=== PATIENT | male | born 1960 | race Caucasian/White ===

== ENCOUNTER → 2019-03-05 | Outpatient (CLI) | payer MEDICAID ==
--- NOTE | 2019-03-05 16:20 | RADIOLOGY REPORT (SQ) ---
EXAM DESCRIPTION: FOOT RIGHT COMPLETE COMPLETED DATE/TIME: 03/05/2019 4:08 pm REASON FOR STUDY: PAIN IN RIGHT FOOT M79.671 PAIN IN RIGHT FOOT COMPARISON: None. NUMBER OF VIEWS: Three views. TECHNIQUE: AP, lateral and oblique without weight bearing radiographic images acquired of the right foot. LIMITATIONS: None. FINDINGS: MINERALIZATION: Normal. BONES: No acute fracture or dislocation. There is bony fusion of the talus and calcaneus. No worris ome bone lesions. No significant osteophytes. JOINTS: No erosions. No merary-articular osteopenia. No chondrocalcinosis. SOFT TISSUES: Extensive calcifications in the posterior soft tissues of the distal calf, not complete ly imaged. OTHER: No other significant finding. IMPRESSION: BONY FUSION OF THE TALUS AND CALCANEUS WHICH OBLITERATES THE SUBTALAR JOINT. EXTENSIVE CALCIFICATIONS IN THE POSTERIOR SOFT TISSUES OF THE DISTAL CALF, NOT COMPLETELY IMAGED. NO ACUTE FIN DINGS. TECHNICAL DOCUMENTATION: JOB ID: [id number] [employer]- All Rights Reserved Reading location - IP/workstation name: [email or web address]
== END ==
LOC: OD 15:54
PROVIDERS: ATTEND Family Medicine
DX: M79.671 Pain in right foot (principal)

== ENCOUNTER → 2019-08-14 | Outpatient (CLI) | payer MEDICAID ==
--- NOTE | 2019-08-14 17:07 | RADIOLOGY REPORT (SQ) ---
EXAM DESCRIPTION: C SP 4 OR 5 VIEWS COMPLETED DATE/TIME: 08/14/2019 4:11 pm REASON FOR STUDY: NECK PAIN ACUTE M54.2 CERVICALGIA COMPARISON: None. NUMBER OF VIEWS: Five views. TECHNIQUE: AP, lateral, obliques and odontoid radiographic images acquired of the cervical spine. LIMITATIONS: None. FINDINGS: MINERALIZATION: Normal. ALIGNMENT: Anatomic. VERTEBRAE: Intact. 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 DISCS: Disc space narrowing with osteophytes, most pronounced at at C5-C6 and C7-T1. FORAMINA: Foraminal narrowing due to posterior osteophytes in the lower cervical spine, most pronounc ed at C5-C6. LATERAL AND POSTERIOR ELEMENTS: Facets, lateral masses and spinous processes without significant find ings. HARDWARE: None in the spine. SOFT TISSUES: No masses or calcifications. Lung apices clear. OTHER: No other significant finding. 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 DEGENERATIVE DISC DISEASE DESCR IBED. TECHNICAL DOCUMENTATION: JOB ID: [id number] [employer]- All Rights Reserved Reading location - IP/workstation name: [email or web address]
== END ==
LOC: OD 15:58
PROVIDERS: ATTEND Nurse Practitioner Family
DX: M54.2 Cervicalgia (principal)
CPT/HCPCS: 72050

== ENCOUNTER → 2019-08-23 | Outpatient (CLI) | payer MEDICAID ==
--- NOTE | 2019-08-23 13:08 | RADIOLOGY REPORT (SQ) ---
EXAM DESCRIPTION: SHOULDER LEFT 2 OR MORE VIEWS COMPLETED DATE/TIME: 08/23/2019 12:58 pm REASON FOR STUDY: LEFT ANTERIOR SHOULDER PAIN;LUMBAR RADICULOPATHY M25.512 PAIN IN LEFT SHOULDER M5 4.16 RADICULOPATHY, LUMBAR REGION COMPARISON: None. NUMBER OF VIEWS: Three views. TECHNIQUE: Internal rotation, external rotation, and Y view images acquired of the left shoulder. LIMITATIONS: None. FINDINGS: MINERALIZATION: Normal. BONES: No acute fracture. No worrisome bone lesions. JOINTS: No dislocation. VISUALIZED LUNGS AND RIBS: No pneumothorax. No rib fracture. SOFT TISSUES: No radiopaque foreign body. OTHER: No other significant finding. IMPRESSION: NEGATIVE STUDY OF THE LEFT SHOULDER. NO RADIOGRAPHIC EVIDENCE OF ACUTE INJURY. TECHNICAL DOCUMENTATION: JOB ID: [id number] [employer]- All Rights Reserved Reading location - IP/workstation name: [email or web address]
--- NOTE | 2019-08-23 13:10 | RADIOLOGY REPORT (SQ) ---
EXAM DESCRIPTION: LUMBAR SPINE COMPLETE COMPLETED DATE/TIME: 08/23/2019 12:59 pm REASON FOR STUDY: LEFT ANTERIOR SHOULDER PAIN;LUMBAR RADICULOPATHY M25.512 PAIN IN LEFT SHOULDER M5 4.16 RADICULOPATHY, LUMBAR REGION COMPARISON: 06/14/2016 NUMBER OF VIEWS: Five views including obliques. TECHNIQUE: AP, lateral, oblique, and sacral radiographic images acquired of the lumbar spine. LIMITATIONS: None. FINDINGS: MINERALIZATION: Normal. SEGMENTATION: Normal. No transitional anatomy. ALIGNMENT: Normal. VERTEBRAE: Maintained height. No fracture or worrisome bone lesion. DISCS: Preserved height. No significant osteophytes or end plate irregularity. POSTERIOR ELEMENTS: Pedicles and facets are intact. No pars defect or posterior arch defects. Minim al lower lumbar facet arthropathy. HARDWARE: None in the spine. PARASPINAL SOFT TISSUES: Aortic atherosclerosis. PELVIS: Intact as visualized. No fractures or worrisome bone lesions. SI joints intact. OTHER: No other significant finding. IMPRESSION: No evidence of acute bony abnormality. Minimal lower lumbar facet arthropathy. No significant degenerative disc disease. TECHNICAL DOCUMENTATION: JOB ID: [id number] [employer]- All Rights Reserved Reading location - IP/workstation name: [email or web address]
== END ==
LOC: OD 12:31
PROVIDERS: ATTEND Family Medicine
DX: M25.512 Pain in left shoulder (principal); M54.16 Radiculopathy, lumbar region
CPT/HCPCS: 72110

== ENCOUNTER 2020-09-28 10:04 | Day surgery (SDC) | payer MEDICAID ==
[~2020-09-28 10:04] MED LIST: ACETAMINOPHEN 325 MG TABLET PO PRN; CEFAZOLIN 2 GM/D5W RTU 2 GM/50 ML RTUPB IV PRN; DEXAMETHASONE SOD PHOSPHATE INJ 4 MG/1 ML VIAL ONE; FENTANYL CITRATE INJ/PF 100 MCG/2 ML AMPUL ONE; MIDAZOLAM 2 MG/2 ML INJ ONE; ONDANSETRON HCL INJ/PF 4 MG/2 ML SDV ONE; PROPOFOL INJ 200 MG/20 ML VIAL IV ONE; SUGAMMADEX SODIUM 200 MG/2 ML SDV IV ONE
[2020-09-28] MEDS ORDERED: CEFAZOLIN 2 GM/D5W RTU 2 GM/50 ML RTUPB IV ONE (10:10)
[2020-09-28] MEDS ORDERED: BUPIVACAINE INJ/PF LIPOSOME/PF 266 MG/20 ML SDV ONE (10:34)
[2020-09-28 11:03] LABS: HEMATOCRIT 47.8 % (37.9-51.0); HEMOGLOBIN 16.3 g/dL (13.5-17.0); MEAN CORPUSCULAR HEMOGLOBIN 30.3 pg (27.0-33.4); MEAN CORPUSCULAR VOLUME 89 fl (80-97); PLATELET COUNT 205 10^3/uL (150-450); RED BLOOD COUNT 5.37 10^6/uL (4.35-5.55); RED CELL DISTRIBUTION WIDTH 13.4 % (11.5-14.0); WHITE BLOOD COUNT 7.3 10^3/uL (4.0-10.5)
--- NOTE | 2020-09-28 12:07 | Operative Report ---
Nonrecallable Operative Report DATE OF SURGERY: 09/28/20 PREOPERATIVE DIAGNOSIS: left inguinal hernia recurrent. POSTOPERATIVE DIAGNOSIS: Recurrent left inguinal hernia OPERATION: Laparoscopic repair recurrent left inguinal hernia SURGEON: MICHELLE LAZO [employer] ENGINEER: RYLIE NOBLE ANESTHESIA: GA TISSUE REMOVED OR ALTERED: None COMPLICATIONS: None ESTIMATED BLOOD LOSS: 5 cc INTRAOPERATIVE FINDINGS: See note PROCEDURE: Patient was brought to the operating room awake alert in stable condition placed on the operating table supine position induced under general esthesia intubated The abdomen was prepped draped usual sterile fashion for the procedure. After appropriate timeout and site verification the procedure commenced. A curvilinear linear incision was made infraumbilically dissection was carried down through subcutaneous tissue with Bovie cautery to the fascia of the rectus sheath. The anterior sheath was opened transversely with a 15 blade and the muscle was identified and retracted laterally the posterior sheath was identified. A space was made between the posterior sheath and the rectus muscle and the spacemaker balloon was placed into that incision into the space. Spacemaker balloon was inflated under direct vision. This created a space in the retroperitoneum for us to perform the surgery. Two 5 mm ports were placed in the midline under direct vision. Attention was turned to the left side the areolar tissue along the transversalis muscle was dissected back down to identify the transversalis muscle clearly. We continued our dissection inferiorly to identify the cord structures and the internal ring. There was sac that was incarcerated in the internal ring which was mobilized out with blunt and sharp dissection. Once we reduced the sac identify the vas deferens and the spermatic vessels. We then identified the Jagdish's ligament being careful not to injure the iliac vein. Once this was all identified we cleared off the areolar tissue on top of the rectus muscle. And then utilized a piece of polypropylene mesh measuring 3 cm wide by 6 cm long with a slit down the side placed into the retroperitoneum fixed it posteriorly to the Jagdish's ligament anterior to the rectus muscle lateral to the transversalis muscle being careful not to injure the lateral femoral cutaneous nerve. We wrapped the cord and carefully tacked down the mesh to the transversalis muscle. Once this was accomplished we reduce the pneumoperitoneum we closed the rectus sheath incision with 0 Vicryl and closed all 3 skin incisions with intracuticular 4-0 Biosyn Steri-Strips completed the procedure estimated blood loss was less than 10 cc sponge needle counts correct x2 the patient was awakened in the operating extubated transferred recovery in stable condition no complications. CONSUELO Gardiner was present for the entire procedure help with wound retraction dissection and wound closure.
--- NOTE | 2020-09-28 12:12 | Discharge Summary ---
Discharge Summary (SDC) - Discharge Final Diagnosis: Left inguinal hernia recurrent Date of Surgery: 09/28/20 Discharge Date: 09/28/20 Condition: Good Prescriptions: Oxycodone HCl/Acetaminophen [Percocet 10-325 Mg Tablet] 1 each PO Q6HP PRN #15 tablet PRN Reason: Referrals: TAPAN PINA DO [Primary Care Provider] - Discharge Diet: As Tolerated Discharge Activity: Activity As Tolerated, No Lifting Over 10 Pounds Report the Following to Your Physician Immediately: Increase in Pain, Yellow Skin, Drainage-Yellow - pt needs a f/u appoint [facility] in -, Drainage-Rehman, Drainage-Green
[2020-09-28] MEDS ORDERED: OXYCODONE-ACETAMINOPHEN 5-325 MG TABLET ONE (12:48)
[2020-09-28] MEDS ORDERED: OXYCODONE HCL IR 5 MG TABLET ONE (12:49)
[2020-09-28] MEDS ORDERED: OXYCODONE-ACETAMINOPHEN 5-325 MG TABLET PO ONE (13:00)
[2020-09-28] MEDS ORDERED: OXYCODONE HCL IR 5 MG TABLET PO ONE (13:00)
[2020-09-28 13:55] VITALS: BP 133/87
[2020-09-28] MEDS ORDERED: GLYCOPYRROLATE 1 MG/5 ML VIAL ONE (14:23)
[2020-09-28] MEDS ORDERED: SUCCINYLCHOLINE CHLORIDE INJ 200 MG/10 ML VIAL ONE (14:23)
[2020-09-28] MEDS ORDERED: VECURONIUM BROMIDE INJ 10 MG VIAL IV ONE (14:23)
[2020-09-28] MEDS ORDERED: NEOSTIGMINE METHYLSULFATE 10 MG/10 ML VIAL ONE (14:23)
== END 2020-09-28 14:00 | disposition home or self-care (01) ==
LOC: OROUT 10:04
PROVIDERS: ATTEND Surgery
DX: K40.91 Unilateral inguinal hernia, without obstruction or gangrene, recurrent (principal); G80.8 Other cerebral palsy; I10 Essential (primary) hypertension; Z03.818 Encounter for observation for suspected exposure to other biological agents ruled out; M48.061 Spinal stenosis, lumbar region without neurogenic claudication; Z87.891 Personal history of nicotine dependence; Z86.73 Personal history of transient ischemic attack (TIA), and cerebral infarction without residual deficits; Z79.899 Other long term (current) drug therapy
CPT/HCPCS: 36415; 85027; 87635; 00840; 49651; J2250; J1100; J3010; J3490 ×3; J2710; J0330; J2405; J2704; J0690; C9290; C9803; 840; C1713; C1758; C1781

== ENCOUNTER → 2020-11-23 | Outpatient (CLI) | payer MEDICAID ==
--- NOTE | 2020-11-23 12:40 | RADIOLOGY REPORT (SQ) ---
EXAM DESCRIPTION: SHOULDER RIGHT 2 OR MORE VIEWS IMAGES COMPLETED DATE/TIME: 11/23/2020 12:22 pm REASON FOR STUDY: (M25.511)PAIN IN RIGHT SHOULDER M25.511 PAIN IN RIGHT SHOULDER COMPARISON: None. NUMBER OF VIEWS: Three views. TECHNIQUE: Internal rotation, external rotation, and Y view images acquired of the right shoulder. LIMITATIONS: None. FINDINGS: MINERALIZATION: Normal. BONES: No acute fracture. No worrisome bone lesions. No significant osteophytes. GLENOHUMERAL JOINT: No significant findings. ACROMIOCLAVICULAR JOINT: No large osteophytes. SOFT TISSUES: No calcifications. VISUALIZED RIBS, SPINE, AND LUNG: No other significant finding. OTHER: No other significant finding. IMPRESSION: NEGATIVE STUDY OF THE RIGHT SHOULDER. NO EXPLANATION FOR PAIN. TECHNICAL DOCUMENTATION: JOB ID: [id number] 2010 [employer]- All Rights Reserved Reading location - IP/workstation name: [email or web address]
== END ==
LOC: RAD 12:09
PROVIDERS: ATTEND Family Medicine
DX: M25.511 Pain in right shoulder (principal)

== ENCOUNTER 2020-12-01 14:21 | Observation (INO) | payer MEDICAID ==
[~2020-12-01 14:21] MED LIST changes: -ACETAMINOPHEN 325 MG TABLET PO PRN; -CEFAZOLIN 2 GM/D5W RTU 2 GM/50 ML RTUPB IV PRN; -DEXAMETHASONE SOD PHOSPHATE INJ 4 MG/1 ML VIAL ONE; -FENTANYL CITRATE INJ/PF 100 MCG/2 ML AMPUL ONE; -MIDAZOLAM 2 MG/2 ML INJ ONE; -ONDANSETRON HCL INJ/PF 4 MG/2 ML SDV ONE; -PROPOFOL INJ 200 MG/20 ML VIAL IV ONE; +ROCURONIUM BROMIDE INJ 50 MG/5 ML VIAL IV ONE; +SUCCINYLCHOLINE CHLORIDE INJ 200 MG/10 ML VIAL ONE; -SUGAMMADEX SODIUM 200 MG/2 ML SDV IV ONE
[2020-12-01] MEDS ORDERED: ONDANSETRON HCL INJ/PF 4 MG/2 ML SDV IV ONE (14:45)
[2020-12-01] MEDS ORDERED: MORPHINE SULFATE 10 MG/ML INJ IV ONE (14:45)
[2020-12-01] MEDS ORDERED: NORMAL SALINE 1000 ML 1,000 ML IV ONE ×2 (14:45→16:14)
--- NOTE | 2020-12-01 14:51 | ER Document Report ---
ED Medical Screen (RME) - General Chief Complaint: Lower Abdominal Pain Stated Complaint: LOW ABDOMINAL PAIN Time Seen by Provider: 12/01/20 14:45 Primary Care Provider: TAPAN PINA DO [Primary Care Provider] - Follow up as needed TRAVEL OUTSIDE OF THE [place] IN LAST 30 DAYS: No - HPI Notes: 12/01/20 14:55 60 year old male with presents to the emergency room after he was at an outpatient scan for his right inguinal hernia which they did see that he actually has appendicitis. Patient states that he is not having any nausea, vomiting, abdominal pain. He states he might have some when he wears his seatbelts otherwise no pain. Denies any fevers or chills. Patient has not had anything to eat or drink since [address] Clifton Christian has already been notified that patient does have appendicitis. Will obtain labs and patient will be placed on room in the main side ER I have greeted and performed a rapid initial assessment of this patient. A c omprehensive ED assessment and evaluation of the patient, analysis of test results and completion of the medical decision making process will be conducted by additional ED providers. PHYSICAL EXAMINATION: GENERAL: Well-appearing, well-nourished and in no acute distress. CV: s1, s2 regular LUNGS: No respiratory distress abd: RLQ tenderness with deep palpation, no cva tenderness bilaterally Musculoskeletal: Normal range of motion NEUROLOGICAL: Normal speech, normal gait. SKIN: Warm, Dry, normal turgor, no rashes or lesions noted. The patient was evaluated during a global COVID-19 pandemic and that diagnosis was suspected/considered upon their initial presentation. Their evaluation, treatment and testing was consistent with current guidelines for patients who present with complaints or symptoms and may be related to COVID-19. - Related Data Allergies/Adverse Reactions: No Known Allergies Allergy (Verified 03/02/16 09:48) Past Medical History - Past Medical History Cardiac Medical History: Reports: Hx Hypertension Denies: Hx Coronary Artery Disease, Hx Heart Attack Pulmonary Medical History: Denies: Hx Asthma, Hx Bronchitis, Hx COPD, Hx Pneumonia Neurological Medical History: Reports: Hx Cerebrovascular Accident - INFANT R/O CEREBRAL PALSY. Denies: Hx Seizures Musculoskeltal Medical History: Reports Hx Arthritis - Immunizations Hx Diphtheria, Pertussis, Tetanus Vaccination: Yes Physical Exam - Vital signs Vitals: Temp Pulse Resp BP Pulse Ox 98.3 F 56 L 18 138/83 H 98 12/01/20 14:26 12/01/20 14:26 12/01/20 14:26 12/01/20 14:26 12/01/20 14:26 Course - Vital Signs Vital signs: Temp Pulse Resp BP Pulse Ox 98.3 F 56 L 18 138/83 H 98 12/01/20 14:26 12/01/20 14:26 12/01/20 14:26 12/01/20 14:26 12/01/20 14:26 Doctor's Discharge - Discharge Referrals: TAPAN PINA DO [Primary Care Provider] - Follow up as needed
[2020-12-01 15:15] LABS: APPEARANCE,URINE CLEAR; BILIRUBIN,URINE NEGATIVE (NEGATIVE); COLOR,URINE STRAW; GLUCOSE, URINE NEGATIVE (NEGATIVE); KETONES,URINE NEGATIVE (NEGATIVE); LEUKOCYTE ESTERASE,URINE NEGATIVE (NEGATIVE); NITRITE,URINE NEGATIVE (NEGATIVE); PROTEIN,URINE NEGATIVE (NEGATIVE); URINE SPECIFIC GRAVITY 1.038; UROBILINOGEN,URINE NEGATIVE mg/dL (<2.0)
[2020-12-01 15:49] LABS: ABSOLUTE BASOPHILS # (AUTO) 0.1 10^3/uL (0.0-0.2); ABSOLUTE EOSINOPHILS # (AUTO) 0.5 10^3/uL (0.0-0.6); ABSOLUTE LYMPHOCYTES (AUTO) 1.9 10^3/uL (0.5-4.7); ABSOLUTE MONOCYTES (AUTO) 0.7 10^3/uL (0.1-1.4); ABSOLUTE NEUT (AUTO) 3.6 10^3/uL (1.7-8.2); BASOPHILS % (AUTO) 1.1 % (0-2); EOSINOPHILS % (AUTO) 6.6 % (0-6); HEMATOCRIT 45.8 % (37.9-51.0); HEMOGLOBIN 15.5 g/dL (13.5-17.0); LYMPHOCYTES % (AUTO) 27.9 % (13-45); MEAN CORPUSCULAR HEMOGLOBIN 29.5 pg (27.0-33.4); MEAN CORPUSCULAR HGB CONC 33.9 g/dL (32.0-36.0); MEAN CORPUSCULAR VOLUME 87 fl (80-97); MONOCYTES % (AUTO) 10.9 % (3-13); PLATELET COUNT 177 10^3/uL (150-450); RED BLOOD COUNT 5.25 10^6/uL (4.35-5.55); SEGMENTED NEUTROPHILS % (AUTO) 53.5 % (42-78); TOTAL CELLS COUNTED % (AUTO) 100 %; WHITE BLOOD COUNT 6.8 10^3/uL (4.0-10.5)
[2020-12-01 16:10] LABS: ALKALINE PHOSPHATASE 101 U/L (38-126); ANION GAP 6 (5-19); ASPARTATE AMINO TRANSFERASE 25 U/L (17-59); BILIRUBIN,DIRECT 0.1 mg/dL (0.0-0.4); BILIRUBIN,TOTAL 0.3 mg/dL (0.2-1.3); BLOOD UREA NITROGEN 22 mg/dL (7-20); CALCIUM 9.6 mg/dL (8.4-10.2); CARBON DIOXIDE 30 mmol/L (22-30); CHLORIDE 96 mmol/L (98-107); GLUCOSE 100 mg/dL (75-110); POTASSIUM 4.1 mmol/L (3.6-5.0); TOTAL PROTEIN 6.7 g/dL (6.3-8.2)
[2020-12-01] MEDS ORDERED: CEFOXITIN INJ 2 GM VIAL IV ONE (16:14)
[2020-12-01] MEDS ORDERED: NORMAL SALINE 1000 ML 1,000 ML IV PRN ×2 (16:16→20:02)
--- NOTE | 2020-12-01 16:34 | PDOC H&P ---
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 CT scan abdomen pelvis revealed the presence or inflamed appendix within the right groin hernia sac. The patient denies nausea vomiting or other systemic symptoms. He reports her had a right inguinal hernia repaired in 1985. He also had an open left inguinal hernia repair done twice in the and in 2019 Past Medical History Cardiac Medical History: Reports: Hypertension Denies: Coronary Artery Disease, Myocardial Infarction Pulmonary Medical History: Denies: Asthma, Bronchitis, Chronic Obstructive Pulmonary Disease (COPD), Pneumonia Neurological Medical History: Denies: Seizures Musculoskeltal Medical History: Reports: Arthritis Hematology: Denies: Anemia Social History Smoking Status: Never Smoker Family History Parental Family History Reviewed: No Children Family History Reviewed: No Sibling(s) Family History Reviewed.: No Medication/Allergy Home Medications: Hydrochlorothiazide 25 mg PO DAILY 03/01/16 Lisinopril 20 mg PO DAILY 09/28/20 Oxycodone HCl/Acetaminophen [Percocet 10-325 Mg Tablet] 1 each PO Q6HP PRN #15 tablet 09/28/20 Allergies/Adverse Reactions: No Known Allergies Allergy (Verified 03/02/16 09:48) Physical Exam Vital Signs: Temp Pulse Resp BP Pulse Ox 98.3 F 56 L 18 138/83 H 98 12/01/20 14:26 12/01/20 14:26 12/01/20 14:26 12/01/20 14:26 12/01/20 14:26 Intake & Output 11/30/20 12/01/20 12/02/20 06:59 06:59 06:59 Weight 82.4 kg General appearance: PRESENT: no acute distress, thin, well-developed, other - Right upper and lower extremities spasticity Head exam: PRESENT: atraumatic, normocephalic Eye exam: PRESENT: EOMI Mouth exam: PRESENT: moist Teeth exam: PRESENT: edentulous Neck exam: PRESENT: full ROM Respiratory exam: PRESENT: clear to auscultation matilda Cardiovascular exam: PRESENT: RRR GI/Abdominal exam: PRESENT: soft, other - To distended, not tender; presence of tender right groin bulge with grimacing on palpation, normal scrotum with bilateral descended testicles Rectal exam: PRESENT: deferred Gentrourinary exam: PRESENT: other - Normal scrotum with bilateral descended testicles, right groin bulge tender on palpation Extremities exam: PRESENT: full ROM Musculoskeletal exam: PRESENT: full ROM Neurological exam: PRESENT: alert, awake, oriented to time, CN II-XII grossly intact Psychiatric exam: PRESENT: appropriate affect Skin exam: PRESENT: warm Results Laboratory Results: 12/01/20 15:22 12/01/20 15:22 12/01/20 12/01/20 12/01/20 14:45 15:22 15:22 WBC 6.8 RBC 5.25 Hgb 15.5 Hct 45.8 MCV 87 MCH 29.5 MCHC 33.9 RDW 13.0 Plt Count 177 Seg Neutrophils % 53.5 Sodium 132.0 L Potassium 4.1 Chloride 96 L Carbon Dioxide 30 Anion Gap 6 BUN 22 H Creatinine 0.86 Est GFR ( Amer) > 60 Glucose 100 Calcium 9.6 Total Bilirubin 0.3 AST 25 Alkaline Phosphatase 101 Total Protein 6.7 Albumin 4.0 Lipase 46.5 Urine Color STRAW Urine Appearance CLEAR Urine pH 6.0 Ur Specific [place] 1.038 Urine Protein NEGATIVE Urine Glucose (UA) NEGATIVE Urine Ketones NEGATIVE Urine Blood NEGATIVE Urine Nitrite NEGATIVE Ur Leukocyte Esterase NEGATIVE Urine WBC (Auto) 1 Urine RBC (Auto) 0 Assessment & Plan - Time Anticipated Discharge Disposition: Home, Self Care Anticipated Discharge Timeframe: within 72 hours - Plan Summary Plan Summary: Assessment: 60-year-old male with spasticity of the right upper and lower extremities History of multiple right and left inguinal hernia repairs CT scan A/P with Right inguinal hernia containing an inflamed appendix as per acute appendicitis Blood work within normal limits Covid test negative Plan: Laparoscopic appendectomy possible open, followed by open right inguinal hernia repair with mesh either synthetic or absorbable Procedure, risks, benefits, complications, alternatives, explained to the patient, he understands all the above, his questions answered, he decides to proceed Mefoxin 2 g IV piggyback Normal saline 1 L bolus preop
[2020-12-01] MEDS ORDERED: FENTANYL CITRATE INJ/PF 250 MCG/5 ML AMPULE ONE (16:39)
[2020-12-01] MEDS ORDERED: HYDROMORPHONE HCL INJ/PF 2 MG/ML AMPULE ONE (16:39)
[2020-12-01] MEDS ORDERED: PROPOFOL INJ 200 MG/20 ML VIAL IV ONE (16:40)
[2020-12-01] MEDS ORDERED: MIDAZOLAM 2 MG/2 ML INJ ONE (16:40)
[2020-12-01] MEDS ORDERED: FENTANYL CITRATE INJ/PF 100 MCG/2 ML AMPUL ONE ×2 (16:46→20:03)
[2020-12-01] MEDS ORDERED: SUGAMMADEX SODIUM 200 MG/2 ML SDV IV ONE (16:47)
[2020-12-01] MEDS ORDERED: BUPIVACAINE HCL 0.25% /EPINEPHRINE INJ/PF 30 ML SDV ONE (17:07)
[2020-12-01] MEDS ORDERED: ROPIVACAINE HCL 0.5% INJ/PF (5 MG/1 ML) 30 ML SDV ONE (17:21)
[2020-12-01] MEDS ORDERED: PROMETHAZINE HCL INJ 25 MG/1 ML VIAL IV PRN ×2 (18:38)
[2020-12-01] MEDS ORDERED: MORPHINE SULFATE 10 MG/ML INJ IV PRN (18:38)
[2020-12-01] MEDS ORDERED: ONDANSETRON HCL INJ/PF 4 MG/2 ML SDV IV PRN ×2 (18:38→19:53)
[2020-12-01] MEDS ORDERED: FENTANYL CITRATE INJ/PF 100 MCG/2 ML AMPUL IV PRN ×3 (18:38)
[2020-12-01] MEDS ORDERED: DIPHENHYDRAMINE HCL 50 MG/ML VIAL IV PRN (18:38)
[2020-12-01] MEDS ORDERED: MEPERIDINE HCL/PF INJ 25 MG/1 ML DISP.SYRIN IV PRN (18:38)
--- NOTE | 2020-12-01 19:13 | EKG REPORT ---
SEVERITY:- OTHERWISE NORMAL ECG - SINUS BRADYCARDIA : Confirmed by: Marycarmen Davis MD 01-Dec-2020 19:12:54
--- NOTE | 2020-12-01 19:51 | Operative Report ---
Nonrecallable Operative Report DATE OF SURGERY: 12/01/20 PREOPERATIVE DIAGNOSIS: Strangulated right inguinal hernia containing appendix POSTOPERATIVE DIAGNOSIS: Same OPERATION: Open right inguinal herniorrhaphy with absorbable mesh; open appendectomy SURGEON: NONA CHOWDHURY ANESTHESIA: GA - 20 mL of half percent Marcaine with epinephrine TISSUE REMOVED OR ALTERED: Right inguinal hernia sac; right inguinal cord lipoma; appendix COMPLICATIONS: None ESTIMATED BLOOD LOSS: Less than 10 mL INTRAOPERATIVE FINDINGS: Necrotic appendix strangulated inside right indirect inguinal hernia sac PROCEDURE: The procedure was done in the operating room, the patient was placed in a supine position, Ontiveros catheter was inserted, general esthesia induced by endotracheal intubation, the abdomen and both groins were prepped and draped usual fashion. A curvilinear incision was made in the right groin across the middle of the itjust below the ilioinguinal ligament. The subcutaneous fat and Sonny's fascia were divided with Bovie. The external oblique muscle fascia was not identified because it was destroyed by the chronic hernia, a large sac was identified, and this was dissected from surrounding tissues. 2 self-retaining retractors were applied, the hernia sac was completely dissected from s urrounding tissues and the cord was then elevated off the floor and tethered with 1/2 inch Paul drain. The cord structures were then bluntly and with Bovie from the hernia sac. After this the hernia sac was opened with scissors and serosanguineous fluid was obtained and this was sent for culture. The sac was then fully open and a gangrenous appendix identified. This was upward until healthy appendix base was identified. The mesoappendix was divided in between hemostats and tied, the appendix was amputated as proximally as possible and the level of healthy tissue with a 30 mm TA stapler with blue load. The specimen was removed from the conjunctival and medial congestion 6-MP the surgical field. Prior to releasing the stump into the peritoneal cavity, the appendiceal stump mucosa was cauterized, the specimen was then pushed inside the peritoneal cavity. The hernia sac was elevated, a 2-0 silk pursestring suture was placed in the neck, the sac was twisted clockwise, the silk suture was tied, and the sac was amputated. The stump of the sac was pushed inside the peritoneal cavity. The internal inguinal ring was closed with a cone-shaped plug made of absorbable mesh which was inserted into the defect and tied to the edges of the defect with a [id number] 0-Prolene suture. A large piece of absorbable mesh was cut and placed on the inguinal floor. The the mesh covered the entire renal floor and 2 tails were developed so to incorporate the proximal inguinal cord and to reinforce the internal ring. The tails where approximated to each other with a 0-Prolene horizontal mattress suture secured to the fascia. The tip of the mesh was secured to the area of the symphysis pubis with a 0-Prolene suture. The inguinal floor was then irrigated with normal saline which is fully aspirated, the remnant of the external oblique muscle fascia was closed with running locking 0-Prolene suture. The subcutaneous tissue was approximated with 3-0 Vicryl running suture. The skin was closed with running 4-0 Vicryl suture. Dermabond, sterile dressings, Tegaderm, and compression dressings where applied. The patient very procedure well, extubated, the Ontiveros catheter was removed, and transferred to the recovery room in satisfactory conditions.
[2020-12-01] MEDS: KETOROLAC TROMETHAMINE INJ/PF 30 MG/1 ML SDV IV SCH ×2 (21:40→23:14)
[2020-12-01] MEDS: FAMOTIDINE INJ/PF 20 MG/2 ML SDV IV SCH ×2 (21:40→21:41)
[2020-12-01] MEDS ORDERED: CEFOXITIN INJ 2 GM VIAL IV SCH (22:00)
[2020-12-01] MEDS: CEFOXITIN SODIUM 2 GM in DEXTROSE 5%-WATER 100 ML IV SCH (22:04)
[2020-12-02] MEDS: KETOROLAC TROMETHAMINE INJ/PF 30 MG/1 ML SDV IV SCH (05:00)
[2020-12-02] MEDS: CEFOXITIN SODIUM 2 GM in DEXTROSE 5%-WATER 100 ML IV SCH (05:01)
[2020-12-02 06:22] LABS: HEMATOCRIT 41.3 % (37.9-51.0); MEAN CORPUSCULAR HEMOGLOBIN 29.4 pg (27.0-33.4); MEAN CORPUSCULAR HGB CONC 33.8 g/dL (32.0-36.0); MEAN CORPUSCULAR VOLUME 87 fl (80-97); PLATELET COUNT 135 10^3/uL (150-450); RED BLOOD COUNT 4.75 10^6/uL (4.35-5.55); RED CELL DISTRIBUTION WIDTH 13.2 % (11.5-14.0); WHITE BLOOD COUNT 7.5 10^3/uL (4.0-10.5)
[2020-12-02 06:43] LABS: ANION GAP 6 (5-19); BLOOD UREA NITROGEN 21 mg/dL (7-20); CALCIUM 8.6 mg/dL (8.4-10.2); CARBON DIOXIDE 26 mmol/L (22-30); CHLORIDE 102 mmol/L (98-107); GLUCOSE 106 mg/dL (75-110); POTASSIUM 4.5 mmol/L (3.6-5.0)
--- NOTE | 2020-12-02 08:12 | PDOC DISCHARGE SUMMARY ---
General - Admit/Disc Date/PCP Admission Date/Primary Care Provider: 12/01/20 20:31 TAPAN PINA DO Discharge Date: 12/02/20 - Discharge Diagnosis Final Diagnosis: Appendicitis - Assessment Summary: patient was admitted yesterday with right lower quadrant abdominal pain he was taken to the operating room where he was noted to have a acute appendicitis incarcerated in the right inguinal hernia sac. He underwent an appendectomy through the right groin and a repair of the inguinal floor with absorbable mesh. This morning he is afebrile stable vital signs he is tolerating a regular diet and ready for discharge home. He will be given a follow-up appointment 1 7 to 10 days after discharge and surgical clinic for wound evaluation. - Additional Information Resuscitation Status: Full Code Discharge Diet: As Tolerated Discharge Activity: Activity As Tolerated, No Lifting Over 10 Pounds Referrals: TAPAN PINA DO [Primary Care Provider] - Follow up as needed Prescriptions: Hydrocodone/Acetaminophen [[place] 10-325 mg Tablet] 1 tab PO Q6HP PRN #10 tablet PRN Reason: Home Medications: Hydrochlorothiazide 25 mg PO DAILY 03/01/16 Lisinopril 30 mg PO DAILY 09/28/20 Naproxen [Naprosyn] 500 mg PO DAILY 12/01/20 Hydrocodone/Acetaminophen [[place] 10-325 mg Tablet] 1 tab PO Q6HP PRN #10 tablet 12/02/20 History of Present Illiness History of Present Illness: ZAYNAB MEEKS is a 60 year old male Physical Exam Vital Signs: Temp Pulse Resp BP Pulse Ox 97.7 F 52 L 16 103/63 99 12/02/20 04:10 12/02/20 04:10 12/02/20 04:10 12/02/20 04:10 12/02/20 04:10 Intake & Output 12/01/20 12/02/20 12/03/20 06:59 06:59 06:59 Intake Total 3220 Output Total 1225 1994 Weight 84.3 kg Results Laboratory Results: WBC 7.5 10^3/uL (4.0-10.5) 12/02/20 06:00 RBC 4.75 10^6/uL (4.35-5.55) 12/02/20 06:00 Hgb 14.0 g/dL (13.5-17.0) 12/02/20 06:00 Hct 41.3 % (37.9-51.0) 12/02/20 06:00 MCV 87 fl (80-97) 12/02/20 06:00 MCH 29.4 pg (27.0-33.4) 12/02/20 06:00 MCHC 33.8 g/dL (32.0-36.0) 12/02/20 06:00 RDW 13.2 % (11.5-14.0) 12/02/20 06:00 Plt Count 135 10^3/uL (150-450) L 12/02/20 06:00 Lymph % (Auto) 27.9 % (13-45) 12/01/20 15:22 [place] % (Auto) 10.9 % (3-13) 12/01/20 15:22 Eos % (Auto) 6.6 % (0-6) H 12/01/20 15:22 Baso % (Auto) 1.1 % (0-2) 12/01/20 15:22 Absolute Neuts (auto) 3.6 10^3/uL (1.7-8.2) 12/01/20 15:22 Absolute Lymphs (auto) 1.9 10^3/uL (0.5-4.7) 12/01/20 15:22 Absolute Monos (auto) 0.7 10^3/uL (0.1-1.4) 12/01/20 15:22 Absolute Eos (auto) 0.5 10^3/uL (0.0-0.6) 12/01/20 15:22 Absolute Basos (auto) 0.1 10^3/uL (0.0-0.2) 12/01/20 15:22 Seg Neutrophils % 53.5 % (42-78) 12/01/20 15:22 Sodium 133.8 mmol/L (137-145) L 12/02/20 06:00 Potassium 4.5 mmol/L (3.6-5.0) 12/02/20 06:00 Chloride 102 mmol/L (98-107) 12/02/20 06:00 Carbon Dioxide 26 mmol/L (22-30) 12/02/20 06:00 Anion Gap 6 (5-19) 12/02/20 06:00 BUN 21 mg/dL (7-20) H 12/02/20 06:00 Creatinine 0.79 mg/dL (0.52-1.25) 12/02/20 06:00 Est GFR ( Amer) > 60 (>60) 12/02/20 06:00 Est GFR (MDRD) Non-Af > 60 (>60) 12/02/20 06:00 Glucose 106 mg/dL (75-110) 12/02/20 06:00 Calcium 8.6 mg/dL (8.4-10.2) 12/02/20 06:00 Total Bilirubin 0.3 mg/dL (0.2-1.3) 12/01/20 15:22 Direct Bilirubin 0.1 mg/dL (0.0-0.4) 12/01/20 15:22 Neonat Total Bilirubin Not Reportable 12/01/20 15:22 Neonat Direct Bilirubin Not Reportable 12/01/20 15:22 Neonat Indirect Bili Not Reportable 12/01/20 15:22 AST 25 U/L (17-59) 12/01/20 15:22 ALT 28 U/L (<50) 12/01/20 15:22 Alkaline Phosphatase 101 U/L (38-126) 12/01/20 15:22 Total Protein 6.7 g/dL (6.3-8.2) 12/01/20 15:22 Albumin 4.0 g/dL (3.5-5.0) 12/01/20 15:22 Lipase 46.5 U/L (23-300) 12/01/20 15:22 Urine Color STRAW 12/01/20 14:45 Urine Appearance CLEAR 12/01/20 14:45 Urine pH 6.0 (5.0-9.0) 12/01/20 14:45 Ur Specific [place] 1.038 12/01/20 14:45 Urine Protein NEGATIVE mg/dL (NEGATIVE) 12/01/20 14:45 Urine Glucose (UA) NEGATIVE mg/dL (NEGATIVE) 12/01/20 14:45 Urine Ketones NEGATIVE mg/dL (NEGATIVE) 12/01/20 14:45 Urine Blood NEGATIVE (NEGATIVE) 12/01/20 14:45 Urine Nitrite NEGATIVE (NEGATIVE) 12/01/20 14:45 Urine Bilirubin NEGATIVE (NEGATIVE) 12/01/20 14:45 Urine Urobilinogen NEGATIVE mg/dL (<2.0) 12/01/20 14:45 Ur Leukocyte Esterase NEGATIVE (NEGATIVE) 12/01/20 14:45 Urine WBC (Auto) 1 /HPF 12/01/20 14:45 Urine RBC (Auto) 0 /HPF 12/01/20 14:45 Urine Ascorbic Acid NEGATIVE (NEGATIVE) 12/01/20 14:45 Influenza A (RT-PCR) NEGATIVE (NEGATIVE) 12/01/20 15:22 Influenza B (RT-PCR) NEGATIVE (NEGATIVE) 12/01/20 15:22 RSV (RT-PCR) NEGATIVE (NEGATIVE) 12/01/20 15:22 SARS-CoV-2 Rap RNA(RT-PCR) NEGATIVE (NEGATIVE) 12/01/20 15:22
[2020-12-02 08:53] VITALS: BP 119/80
[2020-12-02] MEDS: ENOXAPARIN SODIUM INJ 40 MG/0.4 ML DISP.SYRIN SUBCUT SCH ×2 (08:53→09:11)
[2020-12-02] MEDS: FAMOTIDINE INJ/PF 20 MG/2 ML SDV IV SCH (09:12)
== END 2020-12-02 11:16 | disposition home or self-care (01) ==
LOC: ER 14:21 → 5TH 20:31
PROVIDERS: ADMIT Surgery; ATTEND Surgery
DX: K40.31 Unilateral inguinal hernia, with obstruction, without gangrene, recurrent (principal); K35.891 Other acute appendicitis without perforation, with gangrene; D17.6 Benign lipomatous neoplasm of spermatic cord; I10 Essential (primary) hypertension; Z01.812 Encounter for preprocedural laboratory examination; Z20.822 Contact with and (suspected) exposure to COVID-19; Z79.899 Other long term (current) drug therapy; G80.9 Cerebral palsy, unspecified; M19.90 Unspecified osteoarthritis, unspecified site; Z98.890 Other specified postprocedural states; Z86.73 Personal history of transient ischemic attack (TIA), and cerebral infarction without residual deficits; Z79.891 Long term (current) use of opiate analgesic
CPT/HCPCS: 93005; 99285; 96361; 96374; 96375; 36415 ×2; 87205; 87070; 83690; 85025; 85027; 0241U ×4; 87075; 80048; 80053; 81001; 88302 ×2; 88304 ×2; 93010; 99140; 00840; 49521; 44950; G0378 ×2; C1781; J2795; J2250; J3490 ×3; J3010 ×2; J1885 ×2; J2270; J0330; J2405; J7060; J7030; J2704; S0028; J0694; C9803; 840; J1170

== ENCOUNTER → 2020-12-01 | Outpatient (CLI) | payer MEDICAID ==
--- NOTE | 2020-12-01 14:11 | RADIOLOGY REPORT (SQ) ---
EXAM DESCRIPTION: CT ABD/PELVIS WITH IV ORAL IMAGES COMPLETED DATE/TIME: 12/01/2020 1:44 pm REASON FOR STUDY: (K35.30)ACUTE APPENDICITIS WITH LOC PERITONITIS, W/O PERF OR GANGR K35.30 ACUTE A PPENDICITIS WITH LOC PERITONITIS, W/O PERF OR COMPARISON: None. TECHNIQUE: CT scan of the abdomen and pelvis performed using helical scanning technique with dynamic intravenous contrast injection. No oral contrast. Images reviewed with lung, soft tissue, and bone windows. Reconstructed coronal and sagittal MPR images reviewed. Delayed images for evaluation of the urinary system also acquired. All images stored on PACS. All CT scanners at this facility use dose modulation, iterative reconstruction, and/or weight based d osing when appropriate to reduce radiation dose to as low as reasonably achievable (ALARA). [facility]: Dose Right [facility]: CareDose [facility]: Dose Right [facility]: Teradose 4D [facility]: [employer] CONTRAST TYPE AND DOSE: contrast/concentration: Isovue 350.00 mmol/ml; Total Contrast Delivered: 94. 0 ml; Total Saline Delivered: 40.0 ml RENAL FUNCTION: Creatinine 1.0 RADIATION DOSE: CT Rad equipment meets quality standard of care and radiation dose reduction techniq ues were employed. CTDIvol: 6.8 - 6.8 mGy. DLP: 749 mGy-cm.. LIMITATIONS: None. FINDINGS: LOWER CHEST: No significant findings. No nodules or infiltrates. LIVER: Normal size. No masses. No dilated ducts. SPLEEN: Normal size. No focal lesions. PANCREAS: No masses. No significant calcifications. No adjacent inflammation or peripancreatic fluid collections. Pancreatic duct not dilated. GALLBLADDER: Largely decompressed. No identified stones by CT criteria. No inflammatory changes to s uggest cholecystitis. ADRENAL GLANDS: No significant masses or asymmetry. RIGHT KIDNEY AND URETER: No solid masses. No significant calcifications. No hydronephrosis or hyd roureter. LEFT KIDNEY AND URETER: No solid masses. Cortical scarring. No significant calcifications. No hy dronephrosis or hydroureter. AORTA AND VESSELS: No aneurysm. No dissection. Renal arteries, SMA, celiac without stenosis. RETROPERITONEUM: No retroperitoneal adenopathy, hemorrhage or masses. BOWEL AND PERITONEAL CAVITY: No mass. No obstruction. APPENDIX: The appendix prolapses into a right inguinal hernia, demonstrating circumferential mural th ickening, edema, and periappendiceal inflammatory changes. PELVIS: No mass. No free fluid. Normal bladder. ABDOMINAL WALL: No masses. Fat containing umbilical hernia. BONES: Degenerative changes are seen of the hips and spine. No acute findings. OTHER: No other significant finding. IMPRESSION: Right inguinal hernia containing acute appendicitis. TECHNICAL DOCUMENTATION: JOB ID: [id number] Quality ID # [id number]: Final reports with documentation of one or more dose reduction techniques (e.g., Au tomated exposure control, adjustment of the mA and/or kV according to patient size, use of iterative reconstruction technique) 2010 [employer]- All Rights Reserved Reading location - IP/workstation name: [email or web address]
== END ==
LOC: RAD 10:50
PROVIDERS: ATTEND Family Medicine
DX: K35.30 Acute appendicitis with localized peritonitis, without perforation or gangrene (principal)
CPT/HCPCS: 74177; 82565